=== PATIENT | female | born 1950 | race Caucasian/White ===

== ENCOUNTER → 2016-06-14 10:20 | Outpatient (CLI) | payer MEDICARE, OTHER ==
[2013-02-21 20:37] VITALS: BMI 21.6
[~2016-06-14 10:20] MED LIST: AMBIEN10 MG PO; BAYER CHEWABLE81 MG PO; CELEBREX200 MG PO; HYDROXYZINE PA100 MG PO; NEXIUM40 MG PO; PRISTIQ50 MG PO; STOOL SOFTENER240 MG PO; VITAMIN D50000 UNIT PO
== END | disposition home or self-care (01) ==
LOC: D.RAD 10:20
DX: D50.9 Iron deficiency anemia, unspecified (principal)

== ENCOUNTER 2016-09-12 08:51 | Outpatient (CLI) | payer MEDICARE, OTHER ==
[2013-02-21 20:37] VITALS: BMI 21.6
== END 2016-09-12 11:22 ==
LOC: D.MAMMO 08:51
DX: Z12.31 Encounter for screening mammogram for malignant neoplasm of breast (principal)

== ENCOUNTER → 2018-03-03 20:56 | Outpatient (CLI) | payer MEDICARE, OTHER ==
[2013-02-21 20:37] VITALS: BMI 21.6
== END | disposition home or self-care (01) ==
LOC: D.MAMMO 13:00
DX: Z12.31 Encounter for screening mammogram for malignant neoplasm of breast (principal)

== ENCOUNTER 2018-07-06 10:17 | Emergency (ER) | payer MEDICARE, OTHER ==
[~2018-07-06] VITALS: Ht 165.1 cm; Wt 68.2 kg
[2018-07-06 10:18] VITALS: Ht 165.1 cm; Wt 68.2 kg
[2018-07-06] MEDS ORDERED: RELAFEN500 MG PO (10:21)
[2018-07-06] MEDS ORDERED: OMEPRAZOLE20 M1 PO (10:22)
[2018-07-06] MEDS ORDERED: ZANAFLEX4 MG PO (10:23)
[2018-07-06] MEDS ORDERED: VALIUM 2 MG TAB2 MG PO (10:24)
[2018-07-06] MEDS ORDERED: MYRBETRIQ25 MG PO (10:24)
[2018-07-06 12:18] VITALS: BP 126/65
== END 2018-07-06 12:19 | disposition home or self-care (01) ==
LOC: D.ER 10:17
DX: M54.2 Cervicalgia (principal); M62.838 Other muscle spasm

== ENCOUNTER 2018-07-07 21:43 | Emergency (ER) | payer MEDICARE ==
[~2018-07-07] VITALS: Ht 165.1 cm; Wt 68.2 kg
[~2018-07-07 21:43] MED LIST changes: +MYRBETRIQ25 MG PO; +OMEPRAZOLE20 M1 PO; +RELAFEN500 MG PO; +VALIUM 2 MG TAB2 MG PO; +ZANAFLEX4 MG PO
[2018-07-07 21:53] VITALS: BP 159/89; Ht 165.1 cm; Wt 68.2 kg
[2018-07-08] MEDS ORDERED: TORADOL10 MG PO (12:55)
[2018-07-08] MEDS ORDERED: ROBAXIN500 MG PO (12:55)
== END 2018-07-08 01:00 | disposition left against medical advice (07) ==
LOC: D.ER 21:43
DX: M54.2 Cervicalgia (principal); M62.838 Other muscle spasm

== ENCOUNTER 2018-07-08 09:55 | Emergency (ER) | payer MEDICARE, OTHER ==
[~2018-07-08] VITALS: Ht 167.6 cm; Wt 68.2 kg
[2018-07-08 10:00] VITALS: Ht 167.6 cm; Wt 68.2 kg
[2018-07-08] MEDS ORDERED: ROBAXIN500 MG PO (12:55)
[2018-07-08] MEDS ORDERED: TORADOL10 MG PO (12:55)
[2018-07-08 18:17] VITALS: BP 164/86
== END 2018-07-08 13:53 | disposition home or self-care (01) ==
LOC: D.ER 09:55
DX: M54.2 Cervicalgia (principal); M62.838 Other muscle spasm

== ENCOUNTER 2018-09-18 15:59 | Emergency (ER) | payer MEDICARE, OTHER ==
[~2018-09-18] VITALS: Ht 167.6 cm; Wt 65.0 kg
[~2018-09-18 15:59] MED LIST changes: +ROBAXIN500 MG PO; +TORADOL10 MG PO
[2018-09-18 16:12] VITALS: Ht 167.6 cm; Wt 65.0 kg
[2018-09-18 19:57] VITALS: BP 138/99
== END 2018-09-18 19:59 | disposition home or self-care (01) ==
LOC: D.ER 15:59
DX: M19.032 Primary osteoarthritis, left wrist (principal); S69.92XA Unspecified injury of left wrist, hand and finger(s), initial encounter

== ENCOUNTER → 2019-03-24 12:00 | Outpatient (CLI) | payer MEDICARE, OTHER ==
[2018-09-18 16:12] VITALS: BMI 23.1
== END | disposition home or self-care (01) ==
LOC: D.MAMMO 12:00
PROVIDERS: ATTEND Obstetrics & Gynecology
DX: Z12.31 Encounter for screening mammogram for malignant neoplasm of breast (principal)